=== PATIENT | female | born 1950 | race Caucasian/White ===

== ENCOUNTER 2022-03-30 08:00 | Outpatient (CLI) | payer SELFPAY | END 2022-03-30 23:59 | disposition home or self-care (01) | LOC: LAB.N 08:00 | PROVIDERS: ATTEND Physician Assistant Medical | DX: L03.032 Cellulitis of left toe (principal) | CPT/HCPCS: 87070; 87077; 87205 ==

== ENCOUNTER 2022-09-24 08:00 | Outpatient (CLI) | payer MEDICARE, OTHER ==
--- NOTE | 2022-10-25 16:59 | XRAY Report ---
PROCEDURE: Ankle 3 View RT INDICATIONS: RIGHT ANKLE PAIN TECHNIQUE: 3 views of the ankle were acquired. COMPARISON: 10/19/2022 FINDINGS: Bones: Mildly displaced comminuted distal fibular tip fracture. Slightly prominent lateral gutter ellen suring 3 to 4 mm. Soft tissues: Soft tissue swelling is present. Similar distal Achilles calcification, and calcaneal e nthesopathy. IMPRESSION: Similar appearance of distal fibular fracture. Reviewed by: Jamil Morse MD on 10/25/2022 4:58 PM PST Approved by: Jamil Morse MD on 10/25/2022 4:58 PM PST Station ID: [id number]
== END 2022-10-25 23:59 | disposition home or self-care (01) ==
LOC: DI.WOS 08:00
PROVIDERS: ATTEND Orthopaedic Surgery
DX: S82.831A Other fracture of upper and lower end of right fibula, initial encounter for closed fracture (principal)

== ENCOUNTER 2022-10-19 14:05 | Emergency (ER) | payer MEDICARE, OTHER ==
--- NOTE | 2022-10-19 15:31 | XRAY Report ---
PROCEDURE: Ankle 3 View RT INDICATIONS: injury/pain TECHNIQUE: 3 views of the ankle were acquired. COMPARISON: None FINDINGS: Bones: Fractures through the distal fibular tip appear at least partially healed. No significant soft tissue swelling Soft tissues: No tibiotalar joint effusion. Achilles tendon appears normal. IMPRESSION: Distal fibular tip fracture, uncertain age. No significant soft tissue swelling Reviewed by: Jeovany Curry MD on 10/19/2022 2:30 PM [place] Approved by: Jeovany Curry MD on 10/19/2022 2:30 PM [place] Station ID: [id number]
--- NOTE | 2022-10-19 15:45 | ED Physician Documentation ---
PD HPI LOWER EXT INJURY - Stated complaint Stated Complaint: RT BRADLEY INJ - Chief complaint Chief Complaint: Trauma Ext - History obtained from History obtained from: Patient - Additional information Additional information: The patient comes to the emergency department for chief complaint of ongoing pain over the distal tip of her right lateral malleolus after a twisting injury 2 weeks ago. She states that initially, the pain was mainly over the top of her foot and at first she walked with a cane. However, the pain seems to be getting little better and so she switched to a splint and began walking without assistance. She states that the pain in the top of her foot went away but she began to notice a pain localized to the tip of her lateral malleolus and that this is gotten more and more intense the more she walks on it. Patient states that she has a small amount of swelling but denies any other complaints at this time. No prior history of injury or pain to that ankle. PD PAST MEDICAL HISTORY - Past Medical History Past Medical History: Yes Cardiovascular: Hypertension Respiratory: Asthma Neuro: None Endocrine/Autoimmune: Type 1 diabetes GI: None PERFORMANCE TEST ARCHITECT: None : None HEENT: None Psych: None Musculoskeletal: None Derm: Eczema - Past Surgical History Past Surgical History: Yes General: Cholecystectomy, Appendectomy /PERFORMANCE TEST ARCHITECT: Tubal ligation, Hysterectomy, Mastectomy - Present Medications Home Medications: Ambulatory Orders Medication Instructions Recorded Confirmed Atorvastatin [Lipitor] 40 mg PO DAILY 10/19/22 10/19/22 Furosemide [Lasix] 20 mg PO DAILY 10/19/22 10/19/22 Insulin Glargine [Lantus Solostar] 63 unit SQ BIDWM 10/19/22 10/19/22 Montelukast [Singulair] 10 mg PO DAILY 10/19/22 10/19/22 Quinapril HCl [Accupril] 40 mg PO DAILY 10/19/22 10/19/22 glyBURIDE [Glyburide] 5 mg PO BID 10/19/22 10/19/22 metFORMIN [Glucophage] 1,000 mg PO BIDWM 10/19/22 10/19/22 - Allergies Allergies/Adverse Reactions: Allergies Allergy/AdvReac Type Severity Reaction Status Date / Time adhesive tape Allergy Rash Verified 10/19/22 14:16 furosemide [From Lasix] Allergy Rash Verified 10/19/22 14:16 iodine Allergy Rash Verified 10/19/22 14:16 - Social History Does the pt smoke?: No Smoking Status: Never smoker Does the pt drink ETOH?: No Does the pt have substance abuse?: No - Immunizations Immunizations are current?: No - POLST Patient has POLST: No PD ED PE NORMAL - Vitals Vital signs reviewed: Yes - General General: Alert and oriented X 3, No acute distress, Well developed/nourished, Other (Moderate obesity) - HEENT HEENT: Atraumatic, PERRL, EOMI, Moist mucous membranes - Neck Neck: Supple, no meningeal sign - Cardiac Cardiac: Strong equal pulses - Respiratory Respiratory: No respiratory distress - Derm Derm: Normal color, Warm and dry, No rash - Extremities Extremities: No deformity, Other (Minimal edema just inferior to right lateral malleolus. Point tenderness Just distal to the malleolar tip and including the tip.) - Neuro Neuro: Alert and oriented X 3 - Psych Psych: Normal mood, Normal affect Results - Vitals Vitals: Vital Signs - 24 hr 10/19/22 10/19/22 10/19/22 14:12 14:21 15:30 Temperature 36.5 C Heart Rate 92 Respiratory 16 17 15 Rate Blood Pressure 164/73 H O2 Saturation 95 Oxygen O2 Source Room air - Rads (name of study) Right ankle x-ray series Radiology: Final report received, See rad report (Distal fibular tip fracture, uncertain age.) Procedures - Splint (location) - Minor Right ankle Splint applied by: Tech Type of splint: Fiberglass, Posterior Other: Patient tolerated well, No complications, Neurovascular intact, Crutches provided PD Medical Decision Making - ED course Complexity details: reviewed results, re-evaluated patient, considered differential, d/w patient ED course: I discussed with the patient that given the lack of history of pain or injury to this ankle and given the location of the tenderness, the x-ray findings most likely represent the injury that occurred when she twisted her ankle. However, the radiologist has stated that the fracture is of uncertain age, and there is not much calcification that is happening at this time. As such, I feel that ev en though its been a couple of weeks since injury, the best plan is to immobilize her with a splint and make her nonweightbearing. The patient's been given crutches to this and. She states she also has a knee scooter that belongs to her daughter that she can use to help get around. I advised her to call orthopedics and make an appointment to be seen in the next week or 2 for reevaluation and probably repeat x-rays to see how the healing process is going. Patient is agreeable to this plan. Departure - Departure Disposition: 01 Home, Self Care Clinical Impression: Fracture of distal end of fibula Qualifiers: Encounter type: initial encounter Fracture type: closed Fracture morphology: unspecified fracture morphology Laterality: right Qualified Code(s): S82.831A - Other fracture of upper and lower end of right fibula, initial encounter for closed fracture Condition: Stable Instructions: ED Fx Ankle Lateral Malleolus Follow-Up: Herb Shah MD [Provider Admit Priv/Credential] - Comments: Your x-ray shows a fracture of the very tip of your fibula, the smaller of your 2 lower leg bones that forms the outer "bump" of your ankle. The radiologist is stated that this appears to be of uncertain age, but likely, given your injury and the focus symptoms in the same area, this is the result of the injury you sustained a couple of weeks ago. There does not appear to be a lot of calcium starting to fill in the gap between the fractured pieces, and as such, it is important that we immobilized the area and have you not bear weight on it to optimize any further chance of the pieces healing back together. You have been given contact information for Dr. Topete's office for orthopedic follow-up. Please call soon as possible, either this afternoon or tomorrow morning, to make an appointment to be seen in the next 1 to 2 weeks for reevaluation. Until the n, please wear the splint and use either the crutches or the knee scooter to help you get around.
[2022-10-19 15:50] VITALS: BP 166/65
== END 2022-10-19 16:25 | disposition home or self-care (01) ==
LOC: ED 14:05
DX: S82.831A Other fracture of upper and lower end of right fibula, initial encounter for closed fracture (principal); X50.1XXA Overexertion from prolonged static or awkward postures, initial encounter; Y92.9 Unspecified place or not applicable; I10 Essential (primary) hypertension; E10.9 Type 1 diabetes mellitus without complications; Z79.84 Long term (current) use of oral hypoglycemic drugs; Z79.899 Other long term (current) drug therapy
CPT/HCPCS: 99283

== ENCOUNTER 2022-10-28 07:52 | Outpatient (CLI) | payer MEDICARE, OTHER ==
[2022-10-28 11:59] LABS: BASOPHILS # (AUTO) 0.1 10^3/uL (0.0-0.1); BASOPHILS % (AUTO) 1.3 %; EOSINOPHILS # (AUTO) 0.7 10^3/uL (0.0-0.7); EOSINOPHILS % (AUTO) 7.8 %; HCT - HEMATOCRIT 42.1 % (37.0-47.0); HGB - HEMOGLOBIN 13.1 g/dL (12.0-16.0); LYMPHOCYTES # (AUTO) 2.5 10^3/uL (1.5-3.5); LYMPHOCYTES % (AUTO) 29.1 %; MEAN CORPUSCULAR HEMOGLOBIN 28.5 pg (27.0-31.0); MEAN CORPUSCULAR HGB CONC 31.1 g/dL (32.0-36.0); MEAN CORPUSCULAR VOLUME 91.7 fL (81.0-99.0); MEAN PLATELET VOLUME 10.5 fL (7.9-10.8); MONOCYTES # (AUTO) 1.1 10^3/uL (0.0-1.0); MONOCYTES % (AUTO) 12.7 %; NEUTROPHILS # (AUTO) 4.1 10^3/uL (1.5-6.6); NEUTROPHILS % (AUTO) 48.7 %; PLT - PLATELET COUNT 300 10^3/uL (130-450); RED BLOOD COUNT 4.59 10^6/uL (4.20-5.40); RED CELL DISTRIBUTION WIDTH 13.7 % (12.0-15.0); WHITE BLOOD COUNT 8.5 x10^3/uL (4.8-10.8)
[2022-10-28 12:20] LABS: ALBUMIN 3.7 g/dL (3.2-5.5); ALBUMIN/GLOBULIN RATIO 1.1 (1.0-2.2); ALKALINE PHOSPHATASE 77 IU/L (42-121); ALT ALANINE AMINOTRANSFERASE 35 IU/L (10-60); AST ASPARTATE AMINOTRANSFERASE 24 IU/L (10-42); BILIRUBIN,TOTAL 0.5 mg/dL (0.2-1.0); BUN - BLOOD UREA NITROGEN 22 mg/dL (6-20); CALCIUM 9.5 mg/dL (8.5-10.3); CARBON DIOXIDE - CO2 30 mmol/L (21-32); CHLORIDE 100 mmol/L (101-111); CHOL/HDL RATIO 3.6 (<4.4); CHOLESTEROL 153 mg/dL; CREATININE 0.7 mg/dL (0.4-1.0); GFR - MDRD 82 (>89); GLUCOSE 108 mg/dL (70-100); HDL CHOLESTEROL 42 mg/dL; LDL CHOLESTEROL,CALCULATED 53 mg/dL; LDL/HDL RATIO 1.3 (<4.4); POTASSIUM 4.1 mmol/L (3.5-5.0); SODIUM 137 mmol/L (135-145); TOTAL PROTEIN 7.2 g/dL (6.7-8.2); TRIGLYCERIDES 290 mg/dL; VLDL CHOLESTEROL 58 mg/dL
[2022-10-28 12:26] LABS: THYROID STIMULATING HORMONE 3.41 uIU/mL (0.34-5.60)
[2022-10-28 13:18] LABS: ESTIMATED AVERAGE GLUCOSE 148 mg/dL (70-100); HEMOGLOBIN A1c% 6.8 % (4.27-6.07)
== END 2022-10-28 07:53 | disposition home or self-care (01) ==
LOC: LAB.N 07:52
PROVIDERS: ATTEND Physician Assistant
DX: E11.9 Type 2 diabetes mellitus without complications (principal)
CPT/HCPCS: 36415; 80053; 80061; 83036; 83721; 84443; 85025

== ENCOUNTER 2022-11-07 11:24 | Outpatient (CLI) | payer MEDICARE, OTHER ==
--- NOTE | 2022-11-07 14:02 | XRAY Report ---
PROCEDURE: Chest 2 View X-Ray INDICATIONS: ACUTE COUGH,ASTHMA TECHNIQUE: 2 views of the chest were acquired. COMPARISON: None. FINDINGS: Surgical changes and devices: None. Lungs and pleura: No pleural effusions or pneumothorax. Lungs are clear. Peribronchial cuffing. Mediastinum: Mediastinal contours are normal. Heart size is normal. Bones and chest wall: No suspicious bony abnormalities. Soft tissues appear unremarkable. IMPRESSION: Peribronchial cuffing, suggestive of infectious or inflammatory bronchitis. Reviewed by: Aydin Benton on 11/07/2022 2:01 PM PST Approved by: Aydin Benton on 11/07/2022 2:[address] [facility] Station ID: [id number]
== END 2022-11-07 11:25 | disposition home or self-care (01) ==
LOC: DI 11:24
PROVIDERS: ATTEND Physician Assistant
DX: R05.1 Acute cough (principal); J45.909 Unspecified asthma, uncomplicated

== ENCOUNTER 2022-12-01 08:00 | Outpatient (CLI) | payer MEDICARE, OTHER ==
--- NOTE | 2022-12-01 10:35 | XRAY Report ---
PROCEDURE: Ankle 3 View RT INDICATIONS: RIGHT ANKLE FRACTURE TECHNIQUE: 3 views of the ankle were acquired. COMPARISON: 10/19/2022 FINDINGS: Bones: Again noted is a nonunified avulsion fracture involving the tip of the distal fibula unchanged in appearance from prior examination. No new acute osseous abnormality is seen. Ankle mortise is nor shira aligned. No suspicious bony lesions. No significant degenerative changes are seen. Soft tissues: No tibiotalar joint effusion. Achilles tendon appears normal. IMPRESSION: Stable appearance of nonunified avulsion fracture off the distal tip of the fibula. Reviewed by: Kin Granados MD on 12/01/2022 10:34 AM PDT Approved by: Kin Granados MD on 12/01/2022 10:34 AM PDT Station ID: [id number]
== END 2022-12-01 23:59 | disposition home or self-care (01) ==
LOC: DI.WOS 08:00
PROVIDERS: ATTEND Orthopaedic Surgery
DX: S82.831K Other fracture of upper and lower end of right fibula, subsequent encounter for closed fracture with nonunion (principal)

== ENCOUNTER 2023-01-26 09:20 | Outpatient (CLI) | payer MEDICARE, OTHER ==
[2023-01-26 12:25] LABS: BUN - BLOOD UREA NITROGEN 22 mg/dL (6-20); CALCIUM 9.7 mg/dL (8.5-10.3); CARBON DIOXIDE - CO2 31 mmol/L (21-32); CHLORIDE 104 mmol/L (101-111); CHOL/HDL RATIO 3.9 (<4.4); CHOLESTEROL 195 mg/dL; CREATININE 0.5 mg/dL (0.4-1.0); GFR - MDRD 121 (>89); GLUCOSE 127 mg/dL (70-100); HDL CHOLESTEROL 50 mg/dL; LDL CHOLESTEROL,CALCULATED 68 mg/dL; LDL/HDL RATIO 1.4 (<4.4); POTASSIUM 4.2 mmol/L (3.5-5.0); SODIUM 139 mmol/L (135-145); TRIGLYCERIDES 384 mg/dL; VLDL CHOLESTEROL 77 mg/dL
[2023-01-26 12:34] LABS: ESTIMATED AVERAGE GLUCOSE 154 mg/dL (70-100)
[2023-01-26 18:22] LABS: CREATININE,URINE 41.2 mg/dL; MICROALBUM/CREATININE RATIO,UR 12.1 ug/mg (<30.0); MICROALBUMIN,URINE 0.5 mg/dL (0-300.0)
== END 2023-01-26 09:21 | disposition home or self-care (01) ==
LOC: LAB.N 09:20
PROVIDERS: ATTEND Physician Assistant
DX: E11.9 Type 2 diabetes mellitus without complications (principal); E78.1 Pure hyperglyceridemia
CPT/HCPCS: 36415; 80048; 80061; 82043; 82570; 83036; 83721

== ENCOUNTER 2023-02-21 13:07 | Outpatient (CLI) | payer MEDICARE, OTHER ==
--- NOTE | 2023-02-21 22:04 | DEXA Report ---
PROCEDURE: Dexa Spine and/or Hip INDICATIONS: POST MENOPAUSAL TECHNIQUE: Dual energy x-ray absorptiometry (DXA) was performed on a [employer] System. Regions measur ed are the AP Spine, femoral neck, and if needed forearm. COMPARISON: None FINDINGS: Lumbar Spine: Bone Mineral Density 1.327 g/cm/cm,T score 1.2. Normal. Left Femoral Neck: Bone Mineral Density 0.934 g/cm/cm, T score -0.7. Normal. Left Hip: Bone Mineral Density 1.134 g/cm/cm,T score 1.0. Normal. (T score greater or equal to -1.0: NORMAL) (T score from -1.1 to -2.4: OSTEOPENIA) (T score less than or equal to -2.5 to: OSTEOPOROSIS) Impression: By WHO criteria, this patient has normal bone density. Patients with diagnosis of osteoporosis or osteopenia should have regular bone mineral density assess ment. For those eligible for Medicare, routine testing is allowed once every 2 years. Testing frequ ency can be increased for patients who have rapidly progressing disease or for those who are receivin g medical therapy to restore bone mass. Reviewed by: Venancio Cleveland MD on 02/21/2023 10:02 PM PDT Approved by: Venancio Cleveland MD on 02/21/2023 10:02 PM PDT Station ID: [id number]
== END 2023-02-21 13:08 | disposition home or self-care (01) ==
LOC: DI 13:07
PROVIDERS: ATTEND Physician Assistant
DX: Z78.0 Asymptomatic menopausal state (principal)

== ENCOUNTER 2023-07-04 22:10 | Emergency (ER) | payer MEDICARE, OTHER ==
[2023-07-04 22:31] VITALS: BP 150/70; O2SAT 92
--- NOTE | 2023-07-04 23:36 | XRAY Report ---
PROCEDURE: Ankle 3 View LT INDICATIONS: Trauma TECHNIQUE: 3 views of the ankle were acquired. COMPARISON: None. FINDINGS: Bones: There is a nondisplaced transverse fracture in the fibular tip. Ankle mortise is normally al igned. No suspicious bony lesions. Soft tissues: Small tibiotalar joint effusion. Achilles tendon appears normal. Soft tissue swellin g over the lateral malleolus. IMPRESSION: Nondisplaced fibular fracture. Reviewed by: Katie Simmons MD on 07/04/2023 11:35 PM PDT Approved by: Katie Simmons MD on 07/04/2023 11:35 PM PDT Station ID: [id number]
--- NOTE | 2023-07-05 00:56 | ED Physician Documentation ---
PD HPI LOWER EXT INJURY - Stated complaint Stated Complaint: LT LEG INJ/LT WRIST PX - Chief complaint Chief Complaint: Trauma Ext - History obtained from History obtained from: Patient - Additional information Additional information: HPI from patient. Patient stepped off a curb at approximately 3:30 PM today, twisting the left ankle and causing sudden onset left ankle pain, swelling. The pain and swelling have steadily worsened throughout the day. The misstep caused her to fall, as well, and she sustained an abrasion to the right knee but denies pain, swelling except for the left ankle. She does not know when her last tetanus booster was. Pain in ankle is exacerbated with movement, palpation, and weight-bearing (although she has been able to slowly ambulate using her walker to minimize weig ht-bearing on the left ankle. Review of Systems Musculoskeletal: reports: Joint pain, Joint swelling, Pain with weight bearing. denies: Neck pain, Back pain Neurologic: denies: Focal weakness, Numbness, Headache PD PAST MEDICAL HISTORY - Past Medical History Cardiovascular: Hypertension Respiratory: Asthma Neuro: None Endocrine/Autoimmune: Type 1 diabetes GI: None CUSTOMS INVESTIGATOR: None : None HEENT: None Psych: None Musculoskeletal: None Derm: Eczema - Past Surgical History Past Surgical History: Yes General: Cholecystectomy, Appendectomy /CUSTOMS INVESTIGATOR: Tubal ligation, Hysterectomy, Mastectomy - Present Medications Home Medications: Ambulatory Orders Medication Instructions Recorded Confirmed Atorvastatin [Lipitor] 40 mg PO DAILY 10/19/22 10/19/22 Furosemide [Lasix] 20 mg PO DAILY 10/19/22 10/19/22 Insulin Glargine [Lantus Solostar] 63 unit SQ BIDWM 10/19/22 10/19/22 Montelukast [Singulair] 10 mg PO DAILY 10/19/22 10/19/22 Quinapril HCl [Accupril] 40 mg PO DAILY 10/19/22 10/19/22 glyBURIDE [Glyburide] 5 mg PO BID 10/19/22 10/19/22 metFORMIN [Glucophage] 1,000 mg PO BIDWM 10/19/22 10/19/22 oxyCODONE [Roxicodone] 5 - 10 mg PO Q6H PRN #14 tablet 07/05/23 - Allergies Allergies/Adverse Reactions: Allergies Allergy/AdvReac Type Severity Reaction Status Date / Time adhesive tape Allergy Rash Verified 07/04/23 22:17 furosemide [From Lasix] Allergy Rash Verified 07/04/23 22:17 iodine Allergy Rash Verified 07/04/23 22:17 - Social History Does the pt smoke?: No Smoking Status: Never smoker Does the pt drink ETOH?: No Does the pt have substance abuse?: No - Immunizations Immunizations are current?: No - POLST Patient has POLST: No PD ED PE NORMAL - Vitals Vital signs reviewed: Yes - General General: Alert and oriented X 3, No acute distress, Well developed/nourished - Neuro Neuro: No motor deficit, No sensory deficit PD ED PE EXPANDED - Extremities Extremities: Tenderness, Limited ROM, Swelling, Left ankle (lateral aspect TTP, swelling), Other (right knee: abrasion to anterior (prepatellar) surface but no bony tenderness nor limited ROM. Dried blood on the abrasion but no active bleeding) Results - Vitals Vitals: Oxygen O2 Source Room air - Rads (name of study) xrays left ankle Relevant Findings:: Prelim report reviewed, See rad report PD Medical Decision Making - ED course Complexity details: reviewed results, re-evaluated patient, considered differential, d/w patient ED course: xrays reveal left lateral malleolar fracture, minimally displaced. Air-cast splint is placed. Patient says she does poorly with crutches and prefers to continue using her walker, which is appropriate to this injury. She is instructed to follow up with her orthopedic surgeon (recently had similar injury to her right ankle). She is given dtap (unknown last tetanus booster). She declines analgesia in ED but accepts take-home pack of percocet, given that worsening pain over initial 1-2 days is possible. She is instructed to take the percocet if OTC NSAIDs are ineffective (I instructed her to not take acetaminophen/tylenol within 6 hours of percocet). I am also prescribing a short course of PRN oxycodone for same indication. I reviewed this patient's BRYANNA/past rx, and there are no concerning findings/patterns of filled CDS medications. She understands that narcotic/opiate medications (such as oxycodone/percocet) are meant for short- term use only, can be habit-forming, and preclude driving for a minimum of six hours. Departure - Departure Disposition: 01 Home, Self Care Clinical Impression: Fibula fracture Qualifiers: Encounter type: initial encounter Fibula location: lateral malleolus Fracture type: closed Fracture alignment: nondisplaced Laterality: left Qualified Co de(s): S82.65XA - Nondisplaced fracture of lateral malleolus of left fibula, initial encounter for closed fracture Abrasion of knee, right Qualifiers: Encounter type: initial encounter Qualified Code(s): S80.211A - Abrasion, right knee, initial encounter Condition: Good Instructions: ED Abrasion, ED Fx Ankle Lateral Malleolus Prescriptions: oxyCODONE [Roxicodone] 5 - 10 mg PO Q6H PRN #14 tablet PRN Reason: Pain >8 Comments: The x-ray demonstrates a fracture (break) of the outer aspect of your left ankle; this is called the lateral (outer) malleolus, and it corresponds to the far end of your fibula. You should minimize weight-bearing using your walker, and keep the provided splint in place until you follow-up with orthopedic surgery. Contact your orthopedic surgeon's office this morning when they open to arrange for next available appointment for reevaluation. I have electronically submitted a prescription for oxycodone (opiate/narcotic pain medication) to the [facility] pharmacy in [place] I am prescribing a short course of narcotic pain medication for you. These are potentially dangerous and addictive medications that should be used carefully. These medications may constipate you. Take an [id number] stool softener (docusate) twice daily with plenty of water while taking these medications. If you go 24 hours without a bowel movement, take gydb-wbz-ytknoes miralax, per pa ckage instructions. Do not drink or drive while taking these medications. If you received narcotic or sedating medications while in the emergency department, do not drive for 24 hours. Store this medication in a safe, secure place and out of reach of children. It is a violation of federal law to give or sell this medication to another person or to use in a manner other than prescribed. The ED will not refill narcotic prescriptions, including prescriptions lost or stolen. To dispose of unwanted medications: 1. [facility] [address] [facility] [place] has a medication drop box. They accept prescription medications (in pill form) Monday through Monday 9:00 a.m. to 5:00 p.m. 2. The [facility] accepts prescription medications (in pill form only) for disposal year round. Call for more information. 3. Contact the [facility] for the next [facility] sponsored prescription drug collection event. , [phone], or [phone]; Forms: PCP List Discharge Date/Time: 07/05/23 01:58
[2023-07-05] MEDS ORDERED: oxyCODONE/ACET 5/325 Prepack 4 PO STA (01:09)
[2023-07-05] MEDS ORDERED: TETANUS/DIPHTHERIA/PERTUSSIS 0.5 ML SYRINGE IM ONE (01:09)
== END 2023-07-05 01:58 | disposition home or self-care (01) ==
LOC: ED 22:10
DX: S80.211A Abrasion, right knee, initial encounter (principal); S82.425A Nondisplaced transverse fracture of shaft of left fibula, initial encounter for closed fracture; X50.1XXA Overexertion from prolonged static or awkward postures, initial encounter; W01.0XXA Fall on same level from slipping, tripping and stumbling without subsequent striking against object, initial encounter; Y93.89 Activity, other specified
CPT/HCPCS: 90471; 99283

== ENCOUNTER 2023-07-06 09:04 | Outpatient (CLI) | payer MEDICARE, OTHER ==
[2023-07-06 12:24] LABS: BASOPHILS # (AUTO) 0.1 10^3/uL (0.0-0.1); EOSINOPHILS # (AUTO) 0.9 10^3/uL (0.0-0.7); EOSINOPHILS % (AUTO) 9.1 %; HCT - HEMATOCRIT 42.1 % (37.0-47.0); HGB - HEMOGLOBIN 13.4 g/dL (12.0-16.0); LYMPHOCYTES # (AUTO) 3.4 10^3/uL (1.5-3.5); LYMPHOCYTES % (AUTO) 34.9 %; MEAN CORPUSCULAR HEMOGLOBIN 29.3 pg (27.0-31.0); MEAN CORPUSCULAR HGB CONC 31.8 g/dL (32.0-36.0); MEAN CORPUSCULAR VOLUME 92.1 fL (81.0-99.0); MEAN PLATELET VOLUME 10.7 fL (7.9-10.8); MONOCYTES % (AUTO) 10.4 %; NEUTROPHILS # (AUTO) 4.3 10^3/uL (1.5-6.6); NEUTROPHILS % (AUTO) 44.3 %; PLT - PLATELET COUNT 294 10^3/uL (130-450); RED BLOOD COUNT 4.57 10^6/uL (4.20-5.40); RED CELL DISTRIBUTION WIDTH 13.2 % (12.0-15.0); WHITE BLOOD COUNT 9.8 x10^3/uL (4.8-10.8)
[2023-07-06 12:44] LABS: ESTIMATED AVERAGE GLUCOSE 140 mg/dL (70-100); HEMOGLOBIN A1c% 6.5 % (4.27-6.07)
[2023-07-06 12:47] LABS: ALBUMIN/GLOBULIN RATIO 1.3 (1.0-2.2); ALKALINE PHOSPHATASE 72 IU/L (42-121); ALT ALANINE AMINOTRANSFERASE 17 IU/L (10-60); AST ASPARTATE AMINOTRANSFERASE 17 IU/L (10-42); BILIRUBIN,TOTAL 0.4 mg/dL (0.2-1.0); BUN - BLOOD UREA NITROGEN 29 mg/dL (6-20); CALCIUM 9.8 mg/dL (8.5-10.3); CARBON DIOXIDE - CO2 31 mmol/L (21-32); CHLORIDE 105 mmol/L (101-111); CHOLESTEROL 178 mg/dL; CREATININE 0.6 mg/dL (0.6-1.3); GFR - MDRD 97 (>89); GLUCOSE 104 mg/dL (74-104); HDL CHOLESTEROL 44 mg/dL; POTASSIUM 4.4 mmol/L (3.5-4.5); SODIUM 141 mmol/L (135-145); TRIGLYCERIDES 433 mg/dL (48-352)
[2023-07-06 14:09] LABS: LDL CHOLESTEROL,DIRECT 92 mg/dL (75-193); LDLD/HDL RATIO 2.1 (<4.4)
[2023-07-06 19:00] LABS: CREATININE,URINE 39.1 mg/dL
[2023-07-06 19:01] LABS: MICROALBUMIN,URINE < 0.7 mg/dL
== END 2023-07-06 09:05 | disposition home or self-care (01) ==
LOC: LAB.N 09:04
PROVIDERS: ATTEND Physician Assistant
DX: E11.9 Type 2 diabetes mellitus without complications (principal); E78.5 Hyperlipidemia, unspecified
CPT/HCPCS: 36415; 80053; 80061; 82043; 82570; 83036; 83721; 85025

== ENCOUNTER 2023-07-10 13:54 | Outpatient (CLI) | payer MEDICARE, OTHER ==
--- NOTE | 2023-07-10 16:20 | XRAY Report ---
PROCEDURE: Ankle 3 View LT INDICATIONS: LEFT ANKLE FRACTURE TECHNIQUE: 3 views of the ankle were acquired. COMPARISON: None. FINDINGS: Bones: Interval bone remodeling of the lateral malleolus fracture. Mildly displaced fracture of the base of the fifth metatarsal. Soft tissues: No tibiotalar joint effusion. Achilles tendon appears normal. IMPRESSION: Healing lateral malleolus fracture. Mildly displaced fracture of the base of the fifth metatarsal. Reviewed by: Aydin Benton on 07/10/2023 4:19 PM [facility] Approved by: Aydin Benton on 07/10/2023 4:19 PM [facility] Station ID: [id number]
--- NOTE | 2023-07-10 16:24 | XRAY Report ---
PROCEDURE: Foot 3 View LT INDICATIONS: LEFT FOOT PAIN TECHNIQUE: 3 views of the foot were acquired. COMPARISON: 07/04/2023 FINDINGS: Bones: Mildly displaced, intra-articular fracture at the base of the fifth metatarsal. Soft tissues: No suspicious soft tissue calcifications or masses. IMPRESSION: Mildly displaced, intra-articular fracture at the base of the fifth metatarsal. Reviewed by: Aydin Benton on 07/10/2023 4:23 PM [facility] Approved by: Aydin Benton on 07/10/2023 4:23 PM [facility] Station ID: [id number]
== END 2023-07-10 23:59 | disposition home or self-care (01) ==
LOC: DI.WOS 13:54
PROVIDERS: ATTEND Physician Assistant Surgical
DX: S82.62XD Displaced fracture of lateral malleolus of left fibula, subsequent encounter for closed fracture with routine healing (principal); S92.352A Displaced fracture of fifth metatarsal bone, left foot, initial encounter for closed fracture

== ENCOUNTER 2023-08-08 12:35 | Emergency (ER) | payer MEDICARE, OTHER ==
[2023-08-08 13:04] VITALS: BP 160/65; O2SAT 94
--- NOTE | 2023-08-08 13:21 | XRAY Report ---
PROCEDURE: Wrist 4 View LT INDICATIONS: Trauma TECHNIQUE: 4 views of the wrist were acquired. COMPARISON: None. FINDINGS: Bones: No fractures or dislocations. Sensory ossicle adjacent to the ulnar styloid process. No suspi cious bony lesions. Soft tissues: No suspicious soft tissue calcifications or masses. IMPRESSION: No acute bony abnormality. Reviewed by: Aurelia Cerna MD, PhD on 08/08/2023 1:[address] [facility] Approved by: Aurelia Cerna MD, PhD on 08/08/2023 1:[address] [facility] Station ID: [id number]
--- NOTE | 2023-08-08 13:45 | ED Physician Documentation ---
History of Present Illness - Stated complaint Stated Complaint: LT WRIST PX - Chief complaint Chief Complaint: Ext Problem - Additonal information Additional information: 73-year-old female is here for evaluation of acute left wrist injury. Reports that on she tripped and fell. She did sustain a lower right ankle fracture and has been followed by orthopedics. Initially she did not think anything of the left wrist and she did have some mild swelling. Over time the swelling has gone away but she continues to have pain in the left wrist on the ulnar side. It improves when she wears a wrist splint which she has begun to do over the last week. She is right arm dominant. Review of Systems Musculoskeletal: reports: Extremity pain PD PAST MEDICAL HISTORY - Past Medical History Past Medical History: Yes Cardiovascular: Hypertension Respiratory: Asthma Neuro: None Endocrine/Autoimmune: Type 1 diabetes GI: None CIRCULATION CLERK: None : None HEENT: None Psych: None Musculoskeletal: None Derm: Eczema - Past Surgical History Past Surgical History: Yes General: Cholecystectomy, Appendectomy /CIRCULATION CLERK: Tubal ligation, Hysterectomy, Mastectomy - Present Medications Home Medications: Ambulatory Orders Medication Instructions Recorded Confirmed Atorvastatin [Lipitor] 40 mg PO DAILY 10/19/22 10/19/22 Furosemide [Lasix] 20 mg PO DAILY 10/19/22 10/19/22 Insulin Glargine [Lantus Solostar] 63 unit SQ BIDWM 10/19/22 10/19/22 Montelukast [Singulair] 10 mg PO DAILY 10/19/22 10/19/22 Quinapril HCl [Accupril] 40 mg PO DAILY 10/19/22 10/19/22 glyBURIDE [Glyburide] 5 mg PO BID 10/19/22 10/19/22 metFORMIN [Glucophage] 1,000 mg PO BIDWM 10/19/22 10/19/22 oxyCODONE [Roxicodone] 5 - 10 mg PO Q6H PRN #14 tablet 07/05/23 - Allergies Allergies/Adverse Reactions: Allergies Allergy/AdvReac Type Severity Reaction Status Date / Time adhesive tape Allergy Rash Verified 07/04/23 22:17 iodine Allergy Rash Verified 07/04/23 22:17 Sulfa (Sulfonamide Allergy Respiratory Verified 08/08/23 12:53 Antibiotics) - Social History Does the pt smoke?: No Smoking Status: Never smoker Does the pt drink ETOH?: No Does the pt have substance abuse?: No - Immunizations Immunizations are current?: No - POLST Patient has POLST: No PD ED PE EXPANDED - Extremities Extremities: Left wrist (No deformity. Neurovascular intact. 2+ radial pulse. Normal flexion extension of the wrist. No anatomic snuffbox tenderness. Normal grasp and strength. Mild tenderness was elicited over the ulnar side of the wrist) Results - Vitals Vitals: Vital Signs - 24 hr 08/08/23 12:49 Temperature 36 C L Heart Rate 88 Respiratory 16 Rate Blood Pressure 160/65 H O2 Saturation 94 Oxygen O2 Source Room air - Rads (name of study) left wrist Relevant Findings:: Final report received (No acute fracture or osseous lesion or deformity.) PD Medical Decision Making - ED course Complexity details: reviewed results, re-evaluated patient, d/w patient ED course: 73-year-old female presents emergency department for evaluation of acute left wrist injury that sustained on when she tripped and fell. At that time she injured her right foot/ankle and is wearing a walking boot but often using a walker. Use of the walker seems to be exacerbating the wrist pain. On exam the wrist appears normal with normal function and movement. There was some mild tenderness on the ulnar side of the wrist but no anatomic snuffbox tenderness radial side. An x-ray does not show any new remote or obvious evidence of fracture. Patient states that the pain is often better when she wears the wrist splint and as such I suspect that she may have an overuse injury associated with using the walker. Her mobility is improving and over time as she needs to use the walker less I suspect that this wrist pain will get better. She was administered a new wrist splint today in the emergency department she is discharged home in stable condition with usual emergent return precautions discussed for worsening symptoms. Departure - Departure Disposition: 01 Home, Self Care Clinical Impression: Pain in left wrist Condition: Stable Record reviewed to determine appropriate education?: Yes Comments: Kelly the x-ray of your left wrist does not show any evidence of old, new or healing fractures in the wrist. Because it feels better when you wear the wrist splint I suspect that you have an overuse or new sprain injury associated with walker use. In general I recommend that you wear the wrist splint at all times. You can continue your usual medications. My hope is that over time as your mobility becomes more normal and you require use of the walker less that your pain improves. However I would discuss this ED visit with your orthopedist. Return to the ER for any new or worsening symptoms.
== END 2023-08-08 14:09 | disposition home or self-care (01) ==
LOC: ED 12:35
DX: M25.532 Pain in left wrist (principal); W01.0XXA Fall on same level from slipping, tripping and stumbling without subsequent striking against object, initial encounter; I10 Essential (primary) hypertension; E10.9 Type 1 diabetes mellitus without complications; Z79.899 Other long term (current) drug therapy; Z79.84 Long term (current) use of oral hypoglycemic drugs
CPT/HCPCS: 99282; 99283

== ENCOUNTER 2023-08-21 08:00 | Outpatient (CLI) | payer MEDICARE, OTHER ==
--- NOTE | 2023-08-21 14:28 | XRAY Report ---
PROCEDURE: Ankle 3 View LT INDICATIONS: LEFT ANKLE FRACTURE TECHNIQUE: 3 views of the ankle were acquired. COMPARISON: 07/10/2023 FINDINGS: Bones: Interval bone remodeling of the lateral malleolus fracture. Plantar and dorsal calcaneal enth esophytes. Fifth metatarsal base fracture, better characterized on same day x-ray. Soft tissues: No tibiotalar joint effusion. Achilles tendon appears normal. IMPRESSION: Interval healing of the lateral malleolus fracture. Reviewed by: Aydin Benton MD on 08/21/2023 2:27 PM PST Approved by: Aydin Benton MD on 08/21/2023 2:27 PM PST Station ID: [id number]
--- NOTE | 2023-08-21 14:29 | XRAY Report ---
PROCEDURE: Foot 3 View LT INDICATIONS: LEFT FOOT FRACTURE TECHNIQUE: 3 views of the foot were acquired. COMPARISON: None. FINDINGS: Bones: Similar appearance of the fifth metatarsal base fracture. Soft tissues: No suspicious soft tissue calcifications or masses. IMPRESSION: No significant interval healing of the fifth metatarsal base fracture. Reviewed by: Aydin Benton MD on 08/21/2023 2:28 PM PST Approved by: Aydin Benton MD on 08/21/2023 2:28 PM [facility] Station ID: [id number]
== END 2023-08-21 23:59 | disposition home or self-care (01) ==
LOC: DI.WOS 08:00
PROVIDERS: ATTEND Physician Assistant Surgical
DX: S82.62XD Displaced fracture of lateral malleolus of left fibula, subsequent encounter for closed fracture with routine healing (principal); S92.352A Displaced fracture of fifth metatarsal bone, left foot, initial encounter for closed fracture

== ENCOUNTER 2023-09-19 08:00 | Outpatient (CLI) | payer MEDICARE, OTHER ==
--- NOTE | 2023-09-19 17:54 | XRAY Report ---
PROCEDURE: Ankle 3 View LT INDICATIONS: LEFT ANKLE FRACTURE TECHNIQUE: 3 views of the ankle were acquired. COMPARISON: None. FINDINGS: Bones: Lateral malleolar fracture is redemonstrated. There is increased interval healing when compar ed with the study dated 08/21/2023; however the fracture is still visible. No new fractures or suspic ious bony lesions. There is mild calcaneal spurring, as before. The fifth metatarsal fracture is only partially characterized on this limited view of the foot. Soft tissues: No tibiotalar joint effusion. Achilles tendon appears normal. IMPRESSION: Partial interval healing of the distal left fibular fracture. Please see a detailed description of the fifth metatarsal fracture on the associated views of the kaleb t. Reviewed by: Porsche Ortega MD on 09/19/2023 5:52 PM PST Approved by: Porsche Ortega MD on 09/19/2023 5:52 PM PST Station ID: [id number]
--- NOTE | 2023-09-19 17:55 | XRAY Report ---
PROCEDURE: Foot 3 View LT INDICATIONS: LEFT 5TH MT FRACTURE TECHNIQUE: 3 views of the foot were acquired. COMPARISON: 2 views of the foot dated 08/21/2023 FINDINGS: Bones: The displaced fifth metatarsal fracture is redemonstrated. The fracture line is less conspicu ous than on the comparison study dated 08/21/2023. Soft tissues: No suspicious soft tissue calcifications or masses. IMPRESSION: Partial interval healing of the fifth metatarsal fracture. Reviewed by: Porsche Ortega MD on 09/19/2023 5:54 PM PST Approved by: Porsche Ortega MD on 09/19/2023 5:54 PM PST Station ID: [id number]
== END 2023-09-19 23:59 | disposition home or self-care (01) ==
LOC: DI.WOS 08:00
PROVIDERS: ATTEND Physician Assistant Surgical
DX: S92.352D Displaced fracture of fifth metatarsal bone, left foot, subsequent encounter for fracture with routine healing (principal); S82.62XD Displaced fracture of lateral malleolus of left fibula, subsequent encounter for closed fracture with routine healing

== ENCOUNTER 2024-01-05 10:51 | Outpatient (CLI) | payer MEDICARE, OTHER ==
[2024-01-05 17:51] LABS: BASOPHILS # (AUTO) 0.1 10^3/uL (0.0-0.1); EOSINOPHILS # (AUTO) 0.7 10^3/uL (0.0-0.7); EOSINOPHILS % (AUTO) 7.1 %; HGB - HEMOGLOBIN 13.1 g/dL (12.0-16.0); LYMPHOCYTES # (AUTO) 3.7 10^3/uL (1.5-3.5); LYMPHOCYTES % (AUTO) 39.4 %; MEAN CORPUSCULAR HEMOGLOBIN 28.7 pg (27.0-31.0); MEAN CORPUSCULAR HGB CONC 30.5 g/dL (32.0-36.0); MEAN CORPUSCULAR VOLUME 94.1 fL (81.0-99.0); MEAN PLATELET VOLUME 10.6 fL (7.9-10.8); MONOCYTES % (AUTO) 10.6 %; NEUTROPHILS # (AUTO) 3.9 10^3/uL (1.5-6.6); NEUTROPHILS % (AUTO) 41.7 %; PLT - PLATELET COUNT 289 10^3/uL (130-450); RED BLOOD COUNT 4.57 10^6/uL (4.20-5.40); RED CELL DISTRIBUTION WIDTH 13.1 % (12.0-15.0); WHITE BLOOD COUNT 9.4 x10^3/uL (4.8-10.8)
[2024-01-05 18:19] LABS: BUN - BLOOD UREA NITROGEN 20 mg/dL (6-20); CALCIUM 9.9 mg/dL (8.5-10.3); CARBON DIOXIDE - CO2 32 mmol/L (21-32); CHLORIDE 104 mmol/L (101-111); CHOL/HDL RATIO 3.3 (<4.4); CHOLESTEROL 141 mg/dL; CREATININE 0.6 mg/dL (0.6-1.3); GFR - MDRD 97 (>89); GLUCOSE 97 mg/dL (74-104); HDL CHOLESTEROL 43 mg/dL; LDL CHOLESTEROL,CALCULATED 37 mg/dL; LDL/HDL RATIO 0.9 (<4.4); POTASSIUM 4.2 mmol/L (3.5-4.5); SODIUM 141 mmol/L (135-145); TRIGLYCERIDES 304 mg/dL (48-352); VLDL CHOLESTEROL 61 mg/dL
[2024-01-05 20:28] LABS: ESTIMATED AVERAGE GLUCOSE 151 mg/dL (70-100); HEMOGLOBIN A1c% 6.9 % (4.27-6.07)
== END 2024-01-05 10:52 | disposition home or self-care (01) ==
LOC: LAB.N 10:51
PROVIDERS: ATTEND Physician Assistant
DX: E11.9 Type 2 diabetes mellitus without complications (principal); D72.829 Elevated white blood cell count, unspecified
CPT/HCPCS: 36415; 80048; 80061; 83036; 83721; 85025

== ENCOUNTER 2024-04-18 12:16 | Outpatient (CLI) | payer MEDICARE, OTHER ==
[2024-04-18 18:03] LABS: CALCIUM 9.6 mg/dL (8.5-10.3); CREATININE 0.6 mg/dL (0.6-1.3); POTASSIUM 4.6 mmol/L (3.5-4.5)
[2024-04-18 21:25] LABS: ESTIMATED AVERAGE GLUCOSE 120 mg/dL (70-100); HEMOGLOBIN A1c% 5.8 % (4.27-6.07)
== END 2024-04-18 12:17 | disposition home or self-care (01) ==
LOC: LAB.N 12:16
PROVIDERS: ATTEND Physician Assistant
DX: E11.65 Type 2 diabetes mellitus with hyperglycemia (principal)
CPT/HCPCS: 36415; 80048; 83036